=== PATIENT | male | born 1935 | race Caucasian/White ===

== ENCOUNTER 2016-09-01 10:06 | Emergency (ER) | payer MEDICARE, OTHER ==
[~2016-09-01] VITALS: Ht 177.8 cm; Wt 106.4 kg
[2016-09-01 10:21] VITALS: BP 139/64; PULSE 63; RESP 18; TEMP 97.6; O2SAT 94
[2016-09-01] MEDS ORDERED: ASPI325T PO (10:50)
[2016-09-01] MEDS ORDERED: MELA5TAB15 PO (10:50)
[2016-09-01] MEDS ORDERED: BISO5TAB5 PO (10:50)
[2016-09-01] MEDS ORDERED: ASPI81CH CHEW (10:50)
[2016-09-01] MEDS ORDERED: OMEGCAP PO (10:50)
[2016-09-01] MEDS ORDERED: LATA0.002 EACH EYE (10:50)
[2016-09-01] MEDS ORDERED: BENA25TA3 PO (10:50)
[2016-09-01] MEDS ORDERED: DOXA1TAB34 PO (10:50)
[2016-09-01] MEDS ORDERED: OMEP20TA PO (10:50)
[2016-09-01] MEDS ORDERED: BRIM0.2S4 EACH EYE (10:50)
[2016-09-01] MEDS ORDERED: METF500T4 PO (10:50)
[2016-09-01] MEDS ORDERED: HYDR-3580 PO (10:50)
[2016-09-01] MEDS ORDERED: METF-382 PO (10:50)
[2016-09-01] MEDS ORDERED: VENTAER INH (10:50)
[2016-09-01] MEDS ORDERED: LISI20TA PO (10:50)
[2016-09-01] MEDS ORDERED: CYCL1TAB29 PO (10:50)
[2016-09-01] MEDS ORDERED: DICL1CAP4 PO (10:50)
[2016-09-01] MEDS ORDERED: COLC1TAB7 PO (10:50)
[2016-09-01] MEDS ORDERED: ALLO100T PO (10:50)
[2016-09-01] MEDS ORDERED: LOPE2CAP PO (10:50)
[2016-09-01] MEDS ORDERED: SODIUM CHLORIDE 0.9% FLUSH 5 ML FLUSH IVF PRN (11:00)
[2016-09-01] MEDS ORDERED: oxyCODONE/ACETAMINOPHEN 5 MG/325 MG TAB PO ONE (11:00)
[2016-09-01 11:26] LABS: AUTOMATED NEUTROPHIL # 6.8 TH/MM3 (1.8-7.7); BASOPHIL % 0.4 % (0.0-2.0); EOSINOPHIL # 0.5 TH/MM3 (0-0.4); EOSINOPHIL % 5.4 % (0.0-4.0); HEMATOCRIT 37.2 % (39.0-51.0); HEMO FLAGS DIFF FINAL; LYMPH % 12.3 % (9.0-44.0); LYMPHOCYTE # 1.1 TH/MM3 (1.0-4.8); MEAN CELL VOLUME 88.8 FL (80.0-100.0); MEAN CORPUSCULAR HEMOGLOBIN 30.2 PG (27.0-34.0); MONO % 8.4 % (0.0-8.0); NEUT % 73.5 % (16.0-70.0); PLATELET COUNT 199 TH/MM3 (150-450); RED BLOOD COUNT 4.19 MIL/MM3 (4.50-5.90); WHITE BLOOD COUNT 9.2 TH/MM3 (4.0-11.0)
[2016-09-01 11:31] LABS: CHLORIDE 103 MEQ/L (98-107); POTASSIUM 4.5 MEQ/L (3.5-5.1); SODIUM (NA) 140 MEQ/L (136-145)
[2016-09-01 11:33] VITALS: BP 139/64; PULSE 61; RESP 16; O2SAT 100
[2016-09-01 11:35] LABS: ANION GAP 9 MEQ/L (5-15); APTT (PATIENT) 25.4 SEC (24.3-30.1); BLOOD UREA NITROGEN 30 MG/DL (7-18); PROTHROMBIN TIME - PATIENT 10.7 SEC (9.8-11.6)
[2016-09-01 11:38] LABS: ALT (GPT) 19 U/L (12-78); AST (GOT) 22 U/L (15-37); GLOMERULAR FILTRATION RATE 45 ML/MIN (>89)
[2016-09-01 11:39] LABS: TOTAL BILIRUBIN ADULT 0.3 MG/DL (0.2-1.0)
--- NOTE | 2016-09-01 11:40 | PD ---
HPI Chief Complaint: Musculoskeletal Complaint Time Seen by Provider: 10:49 Travel History International Travel<30 days: No Contact w/Intl Traveler<30days: No Traveled to known affect area: No History of Present Illness HPI Patient is an 81-year-old male who presents to emergency room with complaints of right-sided calf pain. Patient reports that for the past 4 days, he has had increased pain to his right calf. Patient denies any recent travels or any injury to his calf. Patient reports that she does not have any history is of PE or DVT. Patient reports that he researched symptoms and felt that he had phlebitis so he attempted to anticoagulate himself with aspirin. Reports that he is taken around 12 full dose aspirin (325mg) since Tuesday morning. Patient called his primary care doctor today and was told to go to the ER to have US performed for possible dvt. PFSH Past Medical History Cardiovascular Problems: Yes (htn) High Cholesterol: Yes Diabetes: Yes Patient Takes Glucophage: Yes Diminished Hearing: No Tetanus Vaccination: Unknown Influenza Vaccination: Yes Past Surgical History Appendectomy: Yes Cholecystectomy: Yes Tonsillectomy: Yes Family History Family History: Negative Social History Alcohol Use: Yes (occ) Tobacco Use: No Substance Use: No Allergies-Medications (Allergen,Severity, Reaction): Coded Allergies: Acetaminophen (Verified Allergy, Severe, liver problems, 09/01/16) HMG-CoA Reductase Inhibitors (Verified Allergy, Severe, rash/hives, ) Reported Meds & Prescriptions Reported Meds & Active Scripts Active Xarelto Starter Pack 15 & 20 mg (Rivaroxaban) 1 Tab Tab 1 Tab PO DIRECTED 30 Days Reported Loperamide (Loperamide HCl) 2 Mg Cap 2 Mg PO DIRECTED PRN One capsule after each loose stool. Not to exceed 8 capsules per day. Melatonin 5 Mg Tab 3 Mg PO HS Benadryl Allergy (Diphenhydramine HCl) 25 Mg Tab 25 Mg PO Q6H PRN Hydrocodone-Acetaminophen 7.5-325 mg Tab 1 Tab PO Q6H PRN Flexeril (Cyclobenzaprine HCl) 10 Mg Tab 10 Mg PO TID Colcrys (Colchicine) 0.6 Mg Tab 0.6 Mg PO DAILY PRN Zorvolex (Diclofenac) 35 Mg Cap 75 Mg PO DAILY Aspirin 325 Mg Tab 650 Mg PO ONCE Ventolin Hfa 18 GM Inh (Albuterol Sulfate) 90 Mcg/Act Aer 2 Puff INH Q6H PRN [place]-3 Fish Oil/Vitamin (Fish Oil-Cholecalciferol) 1,000-1,000 Mg Cap 1 Cap PO DAILY Omeprazole 20 Mg Tab 20 Mg PO HS Aspirin 81 Mg Chew 81 Mg CHEW HS Latanoprost Opth Drops (Latanoprost) 0.005% Drops 1 Drop EACH EYE HS Refrigerate until opened. Doxazosin (Doxazosin Mesylate) 4 Mg Tab 4 Mg PO DAILY Brimonidine Opth Drops (Brimonidine Tartrate) 0.2% Soln 1 Drop EACH EYE BID Bisoprolol (Bisoprolol Fumarate) 5 Mg Tab 2.5 Mg PO DAILY Metformin ER (Metformin HCl) 1,000 Mg Daniele 1,000 Mg PO AC BREAKFAST With evening meal Metformin ER (Metformin HCl) 500 Mg Daniele 500 Mg PO DAILY With evening meal Lisinopril-Hctz 20-12.5 Mg Tab 1 Tab PO BID Allopurinol 100 Mg Tab 100 Mg PO BID Review of Systems General / Constitutional: No: Fever Eyes: No: Visual changes HENT: No: Headaches Cardiovascular: No: Chest Pain or Discomfort Respiratory: No: Shortness of Breath Gastrointestinal: No: Abdominal Pain Genitourinary: No: Dysuria Musculoskeletal: Positive: Pain (right sided calf pain) Skin: No Rash Neurologic: No: Weakness Psychiatric: No: Depression Endocrine: No: Polydipsia Hematologic/Lymphatic: No: Easy Bruising Physical Exam Narrative GENERAL: nad, nontoxic SKIN: Warm and dry. HEAD: Atraumatic. Normocephalic. CARDIOVASCULAR: Regular rate and rhythm. No murmur appreciated. RESPIRATORY: No accessory muscle use. Clear to auscultation. Breath sounds equal bilaterally. GASTROINTESTINAL: Abdomen soft, non-tender, nondistended. Hepatic and splenic margins not palpable. MUSCULOSKELETAL: No obvious deformities. No clubbing. No cyanosis. Pt with right sided calf tenderness with positive homans sign NEUROLOGICAL: Awake and alert. No obvious cranial nerve deficits. Motor grossly within normal limits. Normal speech. Data Data Last Documented VS Vital Signs Date Time Temp Pulse Resp B/P Pulse Ox O2 Delivery O2 Flow Rate FiO2 09/01/16 12:44 53 16 144/70 100 Room Air 09/01/16 10:21 97.6 Orders Complete Blood Count With Diff (09/01/16 10:56) Comprehensive Metabolic Panel (09/01/16 10:56) Prothrombin Time / Inr (Pt) (09/01/16 10:56) Act Partial Throm Time (Ptt) (09/01/16 10:56) Iv Access Insert/Monitor (09/01/16 10:56) Sodium Chloride 0.9% Flush (Ns Flush) (09/01/16 11:00) Oxycodone-Acetamin 5-325 Mg (Percocet (09/01/16 11:00) Us Leg Venous Doppler (09/01/16 ) Salicylates (Aspirin) (09/01/16 10:56) Sodium Chlor 0.9% 1000 Ml Inj (Ns 1000 M (09/01/16 12:00) Rivaroxaban (Xarelto) (09/01/16 13:00) Labs Laboratory Tests Test 09/01/16 11:15 White Blood Count 9.2 TH/MM3 Red Blood Count 4.19 MIL/MM3 Hemoglobin 12.6 GM/DL Hematocrit 37.2 % Mean Corpuscular Volume 88.8 FL Mean Corpuscular Hemoglobin 30.2 PG Mean Corpuscular Hemoglobin 34.0 % Concent Red Cell Distribution Width 14.0 % Platelet Count 199 TH/MM3 Mean Platelet Volume 8.0 FL Neutrophils (%) (Auto) 73.5 % Lymphocytes (%) (Auto) 12.3 % Monocytes (%) (Auto) 8.4 % Eosinophils (%) (Auto) 5.4 % Basophils (%) (Auto) 0.4 % Neutrophils # (Auto) 6.8 TH/MM3 Lymphocytes # (Auto) 1.1 TH/MM3 Monocytes # (Auto) 0.8 TH/MM3 Eosinophils # (Auto) 0.5 TH/MM3 Basophils # (Auto) 0.0 TH/MM3 CBC Comment DIFF FINAL Differential Comment Prothrombin Time 10.7 SEC Prothromb Time International 1.0 RATIO Ratio Activated Partial 25.4 SEC Thromboplast Time Sodium Level 140 MEQ/L Potassium Level 4.5 MEQ/L Chloride Level 103 MEQ/L Carbon Dioxide Level 28.0 MEQ/L Anion Gap 9 MEQ/L Blood Urea Nitrogen 30 MG/DL Creatinine 1.50 MG/DL Estimat Glomerular Filtration 45 ML/MIN Rate Random Glucose 133 MG/DL Calcium Level 8.8 MG/DL Total Bilirubin 0.3 MG/DL Aspartate Amino Transf 22 U/L (AST/SGOT) Alanine Aminotransferase 19 U/L (ALT/SGPT) Alkaline Phosphatase 55 U/L Total Protein 7.6 GM/DL Albumin 3.5 GM/DL Salicylates Level 5.6 MG/DL MDM Medical Decision Making Medical Screen Exam Complete: Yes Emergency Medical Condition: Yes Interpretation(s) Vital Signs Date Time Temp Pulse Resp B/P Pulse Ox O2 Delivery O2 Flow Rate FiO2 09/01/16 10:21 97.6 63 18 139/64 94 Differential Diagnosis dvt, pe, muscle strain, electrolyte abnormality Narrative Course Patient is an 81 year old male who presents to ER with c/o of right sided calf pain for the past 4 days. Patient denies any recent travels or trips or recent immobilization. No history of PE or DVT. Patient was sent to the emergency room for evaluation of possible DVT. Ultrasound of leg ordered for evaluation of DVT ASA level ordered as pt has taken a significant amount of acetaminophen today for pain. Patient reports taking about 12 of Aspirin 325 Mg which equals to 3, 900mg (3.9 grams) which is not a toxic dose of asa. Will treat pt's pain with perocet - pt does not have allergy to acetaminophen - reports that he was told not to take too much of it as he has history of elevated liver function tests CBC & BMP Diagram 09/01/16 11:15 Last Impressions Lower Extremity Ultrasound 09/01/16 0000 Signed Impressions: Service Date/Time: Thursday, September 01, 2016 11:38 - CONCLUSION: Nonocclusive thrombus anterior tibial vein James Deluna MD a script for xarelto given to pt as well as coupon for 30days free of medications I reviewed with patient in detail all labs and all studies and all findings. Patient will follow-up with his primary care doctor and return to ER as needed Diagnosis Primary Impression: DVT (deep venous thrombosis) Qualified Code: I82.441 - Acute deep vein thrombosis (DVT) of tibial vein of right lower extremity Additional Impression: Renal insufficiency Patient Instructions: General Instructions Additional Instructions: please follow up with your primary care as soon as possible return to ER as needed please bring copy of your ultrasound report to your doctor's office for follow up return to ER if symptoms progress or worsen Med/Other Pt SpecificInfo: Prescription(s) given Scripts Oxycodone 5 Mg Cap5 Mg PO Q6H PRN (PAIN) #20 CAP Ref 0 Prov:Marita Justice DO 09/01/16 Rivaroxaban Starter Pack 15 & 20 mg (Xarelto Starter Pack 15 & 20 mg)1 Tab Tab1 Tab PO DIRECTED 30 Days Ref 0 Prov:Marita Justice DO 09/01/16 Disposition: 01 DISCHARGE HOME Condition: Fair Marita Justice DO Sep 01, 2016 11:40
[2016-09-01 11:41] LABS: ALKALINE PHOSPHATASE 55 U/L (45-117)
[2016-09-01] MEDS ORDERED: SODIUM CHLOR 0.9% 1000 ML INJ 1,000 ML IV ONE (12:00)
--- NOTE | 2016-09-01 12:20 | RADHPO ---
EXAM DATE/TIME: 09/01/2016 11:38 [facility] COMPARISON: No previous studies available for comparison. INDICATIONS : Right leg pain and swelling. MEDICAL HISTORY : Hypercholesterolemia. Diabetes. Glaucoma. SURGICAL HISTORY : Tonsillectomy. Appendectomy. Cholecystectomy. Cataract surgery. ENCOUNTER: Initial ACUITY: 4 - 6 days PAIN SCORE: 8/10 LOCATION: Right leg. TECHNIQUE: Venous ultrasound of the leg was performed from the inguinal ligament to the proximal calf. Real-jenelle e, color Doppler and spectral tracing, compression and augmentation techniques were used. FINDINGS: There is normal compressibility of the deep venous system from the inguinal region to the proximal ca lf. No echogenic clot is seen in the lumen of the common femoral, femoral, popliteal, and posterior tibial veins. There is a normal response of the venous system to proximal and distal augmentation an d respiration. Findings suggesting nonocclusive thrombus in the antecubital vein CONCLUSION: Nonocclusive thrombus anterior tibial vein James Deluna MD on September 01, 2016 at 12:18 Board Certified Radiologist. This report was verified electronically.
[2016-09-01 12:44] VITALS: BP 144/70; PULSE 53; RESP 16; O2SAT 100
[2016-09-01] MEDS ORDERED: RIVA1TAB PO (12:55)
[2016-09-01] MEDS ORDERED: RIVAROXABAN 15 MG TAB PO ONE (13:00)
[2016-09-01] MEDS ORDERED: OXYC1CAP PO (13:28)
[2016-09-02] MEDS ORDERED: WHEEMIS3 (11:27)
== END 2016-09-01 13:42 | disposition home or self-care (01) ==
LOC: PHED 10:06
DX: I82.4Z1 Acute embolism and thrombosis of unspecified deep veins of right distal lower extremity (principal); N18.9 Chronic kidney disease, unspecified; E11.22 Type 2 diabetes mellitus with diabetic chronic kidney disease; I12.9 Hypertensive chronic kidney disease with stage 1 through stage 4 chronic kidney disease, or unspecified chronic kidney disease; E78.00 Pure hypercholesterolemia, unspecified; Z79.4 Long term (current) use of insulin
CPT/HCPCS: 80053; 85025; 85610; 85730; 93971; 96360; 99284; G0480; J7030; 80329

== ENCOUNTER 2016-09-02 02:15 | Observation (INO) | payer MEDICARE, OTHER ==
[2016-09-02] VITALS (7 sets, daily range): BP systolic 139–160; BP diastolic 63–76; PULSE 60–67; RESP 16–20; TEMP 96.9–99.6; O2SAT 60–97
[~2016-09-02] VITALS: Ht 177.8 cm; Wt 108.7 kg
[~2016-09-02 02:15] MED LIST: ALLO100T PO; ASPI325T PO; ASPI81CH CHEW; BENA25TA3 PO; BISO5TAB5 PO; BRIM0.2S4 EACH EYE; COLC1TAB7 PO; CYCL1TAB29 PO; DICL1CAP4 PO; DOXA1TAB34 PO; HYDR-3580 PO; LATA0.002 EACH EYE; LISI20TA PO; LOPE2CAP PO; MELA5TAB15 PO; METF-382 PO; METF500T4 PO; OMEGCAP PO; OMEP20TA PO; OXYC1CAP PO; RIVA1TAB PO; VENTAER INH
--- NOTE | 2016-09-02 03:47 | PD ---
HPI Chief Complaint: Pain: Acute or Chronic Time Seen by Provider: 03:21 Travel History International Travel<30 days: No Contact w/Intl Traveler<30days: No Traveled to known affect area: No History of Present Illness HPI The patient is an 81-year-old male who complained of right calf pain for the past 4 days. He came in yesterday and an ultrasound was done which showed nonocclusive thrombus anterior tibial vein. The patient was sent home with a starter pack of Xarelto, 15 and 20 mg but he could not fill the prescription. He states the pharmacy did not have the medication. He is from [place] and has no local physician. The patient complains of his "clot moving". He states the pain is now behind his knee and severe. He states he cannot walk. PFSH Past Medical History Hx Anticoagulant Therapy: Yes Cardiovascular Problems: Yes High Cholesterol: Yes Diabetes: Yes Patient Takes Glucophage: Yes Diminished Hearing: No Respiratory: Yes Immunizations Current: Yes Tetanus Vaccination: Unknown Influenza Vaccination: Yes Past Surgical History Appendectomy: Yes Cholecystectomy: Yes Tonsillectomy: Yes Social History Alcohol Use: Yes (occ) Tobacco Use: No Substance Use: No Allergies-Medications (Allergen,Severity, Reaction): Coded Allergies: Acetaminophen (Verified Allergy, Severe, liver problems, 09/02/16) HMG-CoA Reductase Inhibitors (Verified Allergy, Severe, rash/hives, ) Reported Meds & Prescriptions Reported Meds & Active Scripts Active Oxycodone (Oxycodone HCl) 5 Mg Cap 5 Mg PO Q6H PRN Xarelto Starter Pack 15 & 20 mg (Rivaroxaban) 1 Tab Tab 1 Tab PO DIRECTED 30 Days Reported Loperamide (Loperamide HCl) 2 Mg Cap 2 Mg PO DIRECTED PRN One capsule after each loose stool. Not to exceed 8 capsules per day. Melatonin 5 Mg Tab 3 Mg PO HS Benadryl Allergy (Diphenhydramine HCl) 25 Mg Tab 25 Mg PO Q6H PRN Hydrocodone-Acetaminophen 7.5-325 mg Tab 1 Tab PO Q6H PRN Flexeril (Cyclobenzaprine HCl) 10 Mg Tab 10 Mg PO TID Colcrys (Colchicine) 0.6 Mg Tab 0.6 Mg PO DAILY PRN Zorvolex (Diclofenac) 35 Mg Cap 75 Mg PO DAILY Aspirin 325 Mg Tab 650 Mg PO ONCE Ventolin Hfa 18 GM Inh (Albuterol Sulfate) 90 Mcg/Act Aer 2 Puff INH Q6H PRN Omeprazole 20 Mg Tab 20 Mg PO HS Aspirin 81 Mg Chew 81 Mg CHEW HS Latanoprost Opth Drops (Latanoprost) 0.005% Drops 1 Drop EACH EYE HS Refrigerate until opened. Doxazosin (Doxazosin Mesylate) 4 Mg Tab 4 Mg PO DAILY Brimonidine Opth Drops (Brimonidine Tartrate) 0.2% Soln 1 Drop EACH EYE BID Bisoprolol (Bisoprolol Fumarate) 5 Mg Tab 2.5 Mg PO DAILY Metformin ER (Metformin HCl) 1,000 Mg Daniele 1,000 Mg PO AC BREAKFAST With evening meal Metformin ER (Metformin HCl) 500 Mg Daniele 500 Mg PO DAILY With evening meal Lisinopril-Hctz 20-12.5 Mg Tab 1 Tab PO BID Allopurinol 100 Mg Tab 100 Mg PO BID Review of Systems Except as stated in HPI: all other systems reviewed are Neg Physical Exam Narrative GENERAL: The patient is alert, oriented 3 in moderate apparent distress with his right posterior knee pain. His vital signs show blood pressure 160/75 but otherwise are normal. SKIN: Warm and dry. No skin rashes seen. HEAD: Atraumatic. Normocephalic. EYES: Pupils equal and round. No scleral icterus. No injection or drainage. ENT: No nasal bleeding or discharge. Mucous membranes pink and moist. NECK: Trachea midline. No JVD. CARDIOVASCULAR: Regular rate and rhythm. No murmur appreciated. RESPIRATORY: No accessory muscle use. Clear to auscultation. Breath sounds equal bilaterally. GASTROINTESTINAL: Abdomen soft, non-tender, nondistended. Hepatic and splenic margins not palpable. MUSCULOSKELETAL: No obvious deformities. No clubbing. No cyanosis. No edema. There is considerable tenderness behind the knee. No cord is palpated in the calf. The patient does have a positive Homans sign and there is Faint tenderness present. NEUROLOGICAL: Awake and alert. No obvious cranial nerve deficits. Motor grossly within normal limits. Normal speech. PSYCHIATRIC: Appropriate mood and affect; insight and judgment normal. Data Data Last Documented VS Vital Signs Date Time Temp Pulse Resp B/P Pulse Ox O2 Delivery O2 Flow Rate FiO2 09/02/16 03:56 65 18 150/76 95 Room Air 09/02/16 02:39 99.6 Orders Rivaroxaban (Xarelto) (09/02/16 09:00) Place In Observation (09/02/16 ) Vital Signs (Adult) Q4H (09/02/16 04:06) Activity Bed Rest (09/02/16 04:06) Trace Evidence Technician / Telemetry .CONTINUOUS (09/02/16 04:06) Diet Heart Healthy (09/02/16 Breakfast) Sodium Chloride 0.9% Flush (Ns Flush) (09/02/16 04:15) Sodium Chloride 0.9% Flush (Ns Flush) (09/02/16 09:00) Naloxone Inj (Narcan Inj) (09/02/16 04:15) Case Management Consult (09/02/16 ) MDM Medical Decision Making Medical Screen Exam Complete: Yes Emergency Medical Condition: Yes Medical Record Reviewed: Yes Differential Diagnosis DVT, intractable leg pain, renal insufficiency Narrative Course The patient has deep vein thrombosis. Diagnosis Primary Impression: DVT (deep venous thrombosis) Additional Impressions: Renal insufficiency Intractable neuropathic pain of right lower extremity Ming Diego MD Sep 02, 2016 03:47
[2016-09-02] MEDS ORDERED: NALOXONE HCL 0.4 MG/ML AMP IV PRN (04:15)
[2016-09-02] MEDS ORDERED: SODIUM CHLORIDE 0.9% FLUSH 5 ML FLUSH FLUSH PRN (04:15)
[2016-09-02] MEDS ORDERED: MORPHINE SULFATE 4 MG/ML INJ IV PUSH PRN (04:30)
[2016-09-02 08:27] LABS: AUTOMATED NEUTROPHIL # 7.4 TH/MM3 (1.8-7.7); BASOPHIL # 0.4 TH/MM3 (0-0.2); BASOPHIL % 3.1 % (0.0-2.0); EOSINOPHIL # 0.6 TH/MM3 (0-0.4); HEMO FLAGS DIFF FINAL; LYMPH % 16.6 % (9.0-44.0); LYMPHOCYTE # 1.9 TH/MM3 (1.0-4.8); MEAN CELL VOLUME 88.9 FL (80.0-100.0); MEAN CORPUSCULAR HEMOGLOBIN 29.3 PG (27.0-34.0); MONO % 11.6 % (0.0-8.0); NEUT % 63.7 % (16.0-70.0); PLATELET COUNT 201 TH/MM3 (150-450); RED BLOOD COUNT 4.27 MIL/MM3 (4.50-5.90); RED CELL DISTRIBUTION WIDTH 14.4 % (11.6-17.2); WHITE BLOOD COUNT 11.7 TH/MM3 (4.0-11.0)
[2016-09-02 08:35] LABS: POTASSIUM 4.3 MEQ/L (3.5-5.1)
[2016-09-02 08:38] LABS: BICARBONATE 25.7 MEQ/L (21.0-32.0)
[2016-09-02] MEDS ORDERED: RIVAROXABAN 15 MG TAB PO SCH (09:00)
[2016-09-02] MEDS ORDERED: SODIUM CHLORIDE 0.9% FLUSH 5 ML FLUSH FLUSH SCH (09:00)
[2016-09-02] MEDS ORDERED: WHEEMIS3 (11:27)
[2016-09-02] MEDS ORDERED: oxyCODONE/ACETAMINOPHEN 7.5 MG/325 MG TAB PO PRN (11:29)
--- NOTE | 2016-09-02 11:29 | HHI.DCPOC ---
Discharge Care Plan Diagnosis: (1) DVT (deep venous thrombosis) Goals to Promote Your Health * To prevent worsening of your condition and complications * To maintain your health at the optimal level Directions to Meet Your Goals Take your medications as prescribed Follow your dietary instruction Follow activity as directed Keep your appointments as scheduled Take your immunizations and boosters as scheduled If your symptoms worsen call your PCP, if no PCP go to Urgent Care Center or Emergency Room Smoking is Dangerous to Your Health. Avoid second hand smoke Call the 24-hour hour crisis hotline for domestic abuse at Janiya Sarmiento MD Sep 02, 2016 11:28
--- NOTE | 2016-09-02 11:36 | HHI.HP ---
[facility] Service [facility] Primary Care Physician Non-Staff Admission Diagnosis DVT Diagnoses: Chief Complaint: Right leg pain Travel History International Travel<30 Days: No Contact w/Intl Traveler <30 Da: No Traveled to Known Affected Are: No History of Present Illness Patient is an 81-year-old gentleman with no past medical history of blood clots who drove down from [place] about a month ago and has had at least a week of right leg pain. He was seen in the emergency room 2 days ago and was diagnosed with a nonocclusive arterial tibial DVT. Patient was recommended for Xarelto given pain medication. He did not take these as he could not obtain his medications. Patient did come back to the emergency room due to increasing pain in the right calf. At this time has been given narcotics for pain which have relieved some of his pain. He has no fevers, no chest pain, no hemoptysis and is not short of breath. Patient has been given his and Xarelto since he's been in the hospital without difficulties. Verification of the ability to obtain his prescription is made by case management and the patient will be discharged later today Review of Systems Constitutional: DENIES: Diaphoretic episodes, Fatigue, Fever, Weight gain, Weight loss, Chills, Dizziness, Change in appetite, Night Sweats Endocrine: DENIES: Heat/cold intolerance, Polydipsia, Polyuria, Polyphagia Eyes: DENIES: Blurred vision, Diplopia, Eye inflammation, Eye pain, Vision loss , Photosensitivity, Double Vision Ears, nose, mouth, throat: DENIES: Tinnitus, Hearing loss, Vertigo, Nasal discharge, Oral lesions, Throat pain, Hoarseness, Ear Pain, Running Nose, Epistaxis, Sinus Pain, Toothache, Odynophagia Cardiovascular: DENIES: Chest pain, Palpitations, Syncope, Dyspnea on Exertion , PND, Lower Extremity Edema, Orthopnea, Claudication Gastrointestinal: DENIES: Abdominal pain, Black stools, Bloody stools, Constipation, Diarrhea, Nausea, Vomiting, Difficulty Swallowing, Anorexia Genitourinary: DENIES: Sexual dysfunction, Urinary frequency, Urinary incontinence, Urgency, Hematuria, Dysuria, Nocturia, Penile Discharge, Testicular Pain, Testicular Swelling Musculoskeletal: COMPLAINS OF: Joint pain Integumentary: DENIES: Abnormal pigmentation, Nail changes, Pruritus, Rash Hematologic/lymphatic: DENIES: Bruising, Lymphadenopathy Immunologic/allergic: DENIES: Eczema, Urticaria Neurologic: DENIES: Abnormal gait, Headache, Localized weakness, Paresthesias, Seizures, Speech Problems, Tremor, Poor Balance Psychiatric: DENIES: Anxiety, Confusion, Mood changes, Depression, Hallucinations, Agitation, Suicidal Ideation, Homicidal Ideation, Delusions Past Family Social History Past Medical History Hyperlipidemia COPD Hypertension Past Surgical History Cholecystectomy Appendectomy Reported Medications Reviewed in the medical record Allergies: Coded Allergies: Acetaminophen (Verified Allergy, Severe, liver problems, 09/02/16) HMG-CoA Reductase Inhibitors (Verified Allergy, Severe, rash/hives, ) Active Ordered Medications Reviewed in the medical record Family History No family history of blood clots Social History No current tobacco or alcohol dependency, lives with his spouse, visiting from [place] Physical Exam Vital Signs Vital Signs Date Time Temp Pulse Resp B/P Pulse Ox O2 Delivery O2 Flow Rate FiO2 09/02/16 10:15 96.9 62 20 151/76 96 09/02/16 07:00 98.3 63 16 157/75 97 Room Air 09/02/16 07:00 63 16 09/02/16 06:08 60 18 139/63 95 Room Air 09/02/16 05:00 62 18 09/02/16 05:00 62 18 147/74 95 Room Air 09/02/16 04:44 18 09/02/16 03:56 65 18 150/76 95 Room Air 09/02/16 02:44 61 18 09/02/16 02:39 99.6 67 18 160/75 96 09/02/16 02:19 99.6 67 20 160/75 96 Room Air Physical Exam GENERAL: This is a well-nourished, well-developed patient, in no apparent distress. SKIN: No rashes, ecchymoses or lesions. Cool and dry. HEAD: Atraumatic. Normocephalic. No temporal or scalp tenderness. EYES: Pupils equal round and reactive. Extraocular motions intact. No scleral icterus. No injection or drainage. ENT: Nose without bleeding, purulent drainage or septal hematoma. Throat without erythema, tonsillar hypertrophy or exudate. Uvula midline. Airway patent. NECK: Trachea midline. No JVD or lymphadenopathy. Supple, nontender, no meningeal signs. CARDIOVASCULAR: Regular rate and rhythm without murmurs, gallops, or rubs. RESPIRATORY: Clear to auscultation. Breath sounds equal bilaterally. No wheezes , rales, or rhonchi. GASTROINTESTINAL: Abdomen soft, non-tender, nondistended. No hepato-splenomegaly , or palpable masses. No guarding. MUSCULOSKELETAL: Extremities without clubbing, cyanosis, or edema. No joint tenderness, effusion, or edema noted. No calf tenderness. Negative Homans sign bilaterally. NEUROLOGICAL: Awake and alert. Cranial nerves II through XII intact. Motor and sensory grossly within normal limits. Five out of 5 muscle strength in all muscle groups. Normal speech. Laboratory Laboratory Tests Test 09/02/16 08:15 White Blood Count 11.7 Red Blood Count 4.27 Hemoglobin 12.5 Hematocrit 38.0 Mean Corpuscular Volume 88.9 Mean Corpuscular Hemoglobin 29.3 Mean Corpuscular Hemoglobin 33.0 Concent Red Cell Distribution Width 14.4 Platelet Count 201 Mean Platelet Volume 8.0 Neutrophils (%) (Auto) 63.7 Lymphocytes (%) (Auto) 16.6 Monocytes (%) (Auto) 11.6 Eosinophils (%) (Auto) 5.0 Basophils (%) (Auto) 3.1 Neutrophils # (Auto) 7.4 Lymphocytes # (Auto) 1.9 Monocytes # (Auto) 1.4 Eosinophils # (Auto) 0.6 Basophils # (Auto) 0.4 CBC Comment DIFF FINAL Differential Comment Sodium Level 138 Potassium Level 4.3 Chloride Level 102 Carbon Dioxide Level 25.7 Anion Gap 10 Blood Urea Nitrogen 23 Creatinine 1.30 Estimat Glomerular Filtration 53 Rate Random Glucose 108 Calcium Level 8.9 Result Diagram: 09/02/16 0815 09/02/16 0815 Imaging 09/02: Nonocclusive anterior tibial DVT Assessment and Plan Problem List: (1) DVT (deep venous thrombosis) ICD Code: I82.409 Status: Acute Plan: Patient will continue with plans for treatment with Xarelto. Have discussed with case management regarding obtaining this medication locally. This is discussed with the patient also. He is complaining of pain which has previously been relieved with pain medication. He is agreeable to discharge Assessment and Plan Other chronic pain problems will continue to be managed by his home regimen, patient's COPD is stable Code Status Full code Discussed Condition With Discharge home Activity unrestricted Diet unrestricted Janiya Sarmiento MD Sep 02, 2016 11:36
[2016-09-02] MEDS ORDERED: IBUPROFEN 600 MG TAB PO ONE (12:00)
== END 2016-09-02 13:07 | disposition home or self-care (01) ==
LOC: PHED 02:15 → PHEDA 04:26 → PHEDH 09:10 → PH3A 10:08
PROVIDERS: ADMIT Hospitalist; ATTEND Hospitalist
DX: I82.401 Acute embolism and thrombosis of unspecified deep veins of right lower extremity (principal); J44.9 Chronic obstructive pulmonary disease, unspecified; N28.9 Disorder of kidney and ureter, unspecified; I10 Essential (primary) hypertension; E78.5 Hyperlipidemia, unspecified; E78.00 Pure hypercholesterolemia, unspecified; E11.9 Type 2 diabetes mellitus without complications
CPT/HCPCS: 80048; 85025; 99284; G0378; J2270